=== PATIENT | female | born 1990 | race Caucasian/White ===

== ENCOUNTER 2016-11-11 16:51 | Emergency (ER) | payer MEDICAID ==
[~2016-11-11] VITALS: Ht 149.9 cm; Wt 61.2 kg
[2016-11-11 16:55] VITALS: BP 113/63; PULSE 95; RESP 18; TEMP 98.3; O2SAT 100
[2016-11-11 17:36] LABS: BILIRUBIN,URINE NEGATIVE (NEGATIVE); BLOOD, URINE 3+ (NEGATIVE); CLARITY/URINE CLOUDY (CLEAR); COLOR,URINE YELLOW (YELLOW); GLUCOSE,URINE NEGATIVE (NEGATIVE); KETONES,URINE NEGATIVE (NEGATIVE); LEUKOCYTE ESTERASE ,URINE 1+ (NEGATIVE); NITRITE, URINE NEGATIVE (NEGATIVE); PH,URINE 6.5 (5.0-8.0); PROTEIN URINE 2+ (NEGATIVE); UROBILINOGEN,URINE 0.2 (0.2-1.0)
--- NOTE | 2016-11-11 17:38 | NUR ---
Patient to ER bed 06 to gown for evaluation. Side rails up. Report given to Man
[2016-11-11] MEDS ORDERED: NACL 0.9% 1,000 ML IV ONE (17:47)
--- NOTE | 2016-11-11 17:50 | NUR ---
ER at bedside examining patient.
[2016-11-11 17:52] LABS: BACTERIA,URINE MODERATE /HPF (None Seen); MUCUS,URINE 1+ /LPF (None Seen); RBC,URINE >100 /HPF (0-3); WBC,URINE 20-50 /HPF (0-3)
[2016-11-11] MEDS ORDERED: KETOROLAC TROMETHAMINE 30 MG VIAL IVP ONE (18:00)
--- NOTE | 2016-11-11 18:00 | NUR ---
Pt presents to ED c/o lower abd radiating to back since last evening w/nausea.Pt denies vomiting or diarrhea.
--- NOTE | 2016-11-11 18:10 | NUR ---
Patient transported to radiology via gurney, accompanied by rad staff.
[2016-11-11 18:14] LABS: EOSINOPHILS # (AUTO) 0.2 K/uL (0.0-0.4)
--- NOTE | 2016-11-11 18:15 | NUR ---
PT RETURNED FROM RAD DEPT TOLERATED WELL.
[2016-11-11 18:20] LABS: CREATININE 0.75 mg/dL (0.55-1.30); POTASSIUM 4.1 mmol/L (3.5-5.1)
[2016-11-11 18:25] LABS: ALBUMIN 4.6 g/dL (3.4-4.8); TOTAL BILIRUBIN 0.2 mg/dL (0.0-1.0); TOTAL PROTEIN, SERUM 7.8 g/dL (6.4-8.3)
[2016-11-11 18:39] LABS: BASOPHILS # (AUTO) 0.2 K/uL (0.0-0.2); EOSINOPHILS % (AUTO) 1.6 % (0.0-4.0); LYMPHOCYTES # (AUTO) 1.6 K/uL (1.0-5.5); MONOCYTES # (AUTO) 0.7 K/uL (0.0-1.0)
[2016-11-11 18:42] LABS: BASOPHILS % (AUTO) 1.7 % (0.0-2.0); HEMATOCRIT 34.1 % (36-48); HEMOGLOBIN 11.1 g/dL (12.0-16.0); LYMPHOCYTES % (AUTO) 13.2 % (20.5-51.5); MEAN CORPUSCULAR HEMOGLOBIN 23 pg (27-31); MEAN CORPUSCULAR HGB CONC 33 % (32-36); MEAN CORPUSCULAR VOLUME 69 fL (79.0-98.0); MONOCYTES % (AUTO) 5.9 % (1.7-9.3); NEUTROPHILS # (AUTO) 9.3 K/uL (1.8-7.7); NEUTROPHILS % (AUTO) 77.6 % (40.0-70.0); PLATELET COUNT (AUTO) 349 K/uL (130-430); RED BLOOD CELL COUNT(AUTO) 4.92 MIL/uL (4.2-6.2); RED CELL DISTRIBUTION WIDTH 16.8 % (9.0-15.0)
--- NOTE | 2016-11-11 18:50 | NUR ---
PT REPORTS PAIN TOLERABLE 3/10.PT AMULATED TO RESTROOM W/O ASSIST STEADY GAIT.
[2016-11-11] MEDS ORDERED: cefTRIAXone 1 GM IVPB PREMIX 50 ML IV ONE (19:15)
[2016-11-11 19:53] VITALS: BP 113/63; PULSE 95; RESP 18; TEMP 98.3; O2SAT 100
--- NOTE | 2016-11-11 19:53 | NUR ---
Patient given written and verbal discharge instructions and verbalizes understanding. ER MD MOLINA discussed with patient the results and treatment provided. Patient in stable condition. ID arm band removed. IV catheter removed intact and dressing applied, no active bleeding. Rx of MACROBID AND TRAMADOL given. Patient educated on pain management and to follow up with PMD. Pain Scale 2/10. Opportunity for questions provided and answered.
--- NOTE | 2016-11-13 10:41 | NUR ---
RECEIVED FINAL URINE CULTURE, PT WAS GIVEN ABX THAT THEY WERE SENSITIVE TO. NO FURTHER ACTIONS NEEDED
== END 2016-11-11 19:53 | disposition home or self-care (01) ==
LOC: SED 18:36
DX: N12 Tubulo-interstitial nephritis, not specified as acute or chronic (principal)
CPT/HCPCS: 36415; 74176; 80053; 81000; 81025; 83690; 85025; 87086; 87186; 96361; 96365; 96375; 99285; J0696; J1885; J7030

== ENCOUNTER 2018-10-30 11:27 | Emergency (ER) | payer MEDICAID ==
[~2018-10-30] VITALS: Ht 149.9 cm; Wt 68.0 kg
[2018-10-30 11:27] VITALS: BP_SYST 139
[2018-10-30 14:10] VITALS: BP_SYST 133
== END 2018-10-30 14:10 | disposition home or self-care (01) ==
LOC: SED 11:27
DX: J20.9 Acute bronchitis, unspecified (principal); R59.0 Localized enlarged lymph nodes
CPT/HCPCS: 36415; 71046-TC; 81025; 86710; 93005; 99284

== ENCOUNTER 2019-04-06 17:21 | Emergency (ER) | payer MEDICAID ==
[~2019-04-06] VITALS: Ht 149.9 cm; Wt 68.0 kg
[2019-04-06 17:31] VITALS: BP_SYST 138
--- NOTE | 2019-04-06 17:38 | NUR ---
Patient to ER bed 6 to gown for evaluation. Side rails up. Report given to Samson ORTA.
--- NOTE | 2019-04-06 17:40 | NUR ---
Patient is awake, alert, and oriented x4. is at bedside. Patient reports back pain this morning that moved to her upper abdomen at 1400 today. Patient presents with pressure pain to upper abdomen 9/10; she denies nausea, vomiting, and diarrhea.
--- NOTE | 2019-04-06 17:43 | NUR ---
ER Dr. Samuel at bedside examining patient.
[2019-04-06] MEDS ORDERED: KETOROLAC TROMETHAMINE 60 MG/2 ML VIAL IM ONE (17:45)
[2019-04-06 18:29] LABS: HEMOGLOBIN 11.3 g/dL (12.0-16.0); MEAN CORPUSCULAR HEMOGLOBIN 25 pg (27-31); MEAN CORPUSCULAR HGB CONC 32 % (32-36); MEAN CORPUSCULAR VOLUME 76 fL (79.0-98.0); RED BLOOD CELL COUNT(AUTO) 4.61 MIL/uL (4.2-6.2); RED CELL DISTRIBUTION WIDTH 15.8 % (9.0-15.0); WHITE BLOOD COUNT (AUTO) 13.9 K/uL (4.8-10.8)
[2019-04-06 18:30] LABS: BASOPHILS # (AUTO) 0.1 K/uL (0.0-0.2); BASOPHILS % (AUTO) 0.5 % (0.0-2.0); EOSINOPHILS # (AUTO) 0.1 K/uL (0.0-0.4); EOSINOPHILS % (AUTO) 0.5 % (0.0-4.0); LYMPHOCYTES # (AUTO) 1.4 K/uL (1.0-5.5); LYMPHOCYTES % (AUTO) 9.9 % (20.5-51.5); MONOCYTES # (AUTO) 0.8 K/uL (0.0-1.0); NEUTROPHILS # (AUTO) 11.5 K/uL (1.8-7.7); NEUTROPHILS % (AUTO) 83.1 % (40.0-70.0); PLATELET COUNT (AUTO) 343 K/uL (130-430)
[2019-04-06 18:32] LABS: POTASSIUM 3.9 mmol/L (3.5-5.1)
[2019-04-06 18:33] LABS: CREATININE 0.58 mg/dL (0.55-1.30)
[2019-04-06 18:40] LABS: TOTAL BILIRUBIN 0.4 mg/dL (0.0-1.0)
[2019-04-06] MEDS ORDERED: fentaNYL CITRATE/PF 100 MCG/2 ML AMP IM ONE (19:00)
--- NOTE | 2019-04-06 19:04 | NUR ---
Report given to YOU Perez for continuation of care.
[2019-04-06 19:40] VITALS: BP_SYST 138
--- NOTE | 2019-04-06 19:40 | NUR ---
Patient given written and verbal discharge instructions and verbalizes understanding. ER MD discussed with patient the results and treatment provided. Patient in stable condition. ID arm band removed. Rx of [place] given. Patient educated on pain management and to follow up with PMD. Pain Scale 0/10 Opportunity for questions provided and answered. Medication side effect fact sheet provided.
== END 2019-04-06 19:40 | disposition home or self-care (01) ==
LOC: SED 17:21
DX: K80.20 Calculus of gallbladder without cholecystitis without obstruction (principal)
CPT/HCPCS: 36415; 76700; 80053; 81025; 83690; 85025; 96372; 99284; J1885; J3010

== ENCOUNTER 2021-12-06 20:20 | Emergency (ER) | payer MEDICAID ==
[~2021-12-06] VITALS: Ht 149.9 cm; Wt 68.0 kg
[2021-12-06 20:30] VITALS: BP_SYST 125
--- NOTE | 2021-12-06 20:34 | NUR ---
PER PATIENT, PATIENT HAD IUD TAKEN OUT ON 11/29 AND STATED SHE STARTED HER PERIOD TWO DAYS LATER ON 12/01. INCREASE IN PELVIC PAIN AND BLEEDING WITH CLOTS SINCE THEN, WITH NO RELIEF.
--- NOTE | 2021-12-06 20:39 | NUR ---
31 YR OLD AOX4, FEMALE AMBULAORY WITH COMPLAINT OF ABDOMINAL PAIN AFTER IUD REMOVAL ONE WEEK AGO. PT STATES SHE HAS BEEN BLEEDING ALOT AND HAS CONCERNS ABOUT ABDOMINAL CRAMPING. MD AT THE BEDSIDE. WILL MONITOR NEEDED
[2021-12-06] MEDS ORDERED: PHENAZOPYRIDINE HCL 100 MG TABLET PO ONE (21:15)
[2021-12-06] MEDS ORDERED: KETOROLAC TROMETHAMINE 60 MG/2 ML VIAL IM ONE (21:15)
[2021-12-06] MEDS ORDERED: cefTRIAXone 1 GM in LIDOCAINE 1%, 20 ML MDV 2.1 ML IM ONE (21:15)
[2021-12-06] MEDS ORDERED: NITR-85 PO (21:24)
[2021-12-06] MEDS ORDERED: PHEN-726 PO (21:24)
[2021-12-06 21:26] LABS: BILIRUBIN,URINE NEGATIVE (NEGATIVE); BLOOD, URINE 3+ (NEGATIVE); CLARITY/URINE TURBID (CLEAR); COLOR,URINE ORANGE (YELLOW); GLUCOSE,URINE NEGATIVE (NEGATIVE); KETONES,URINE TRACE (NEGATIVE); LEUKOCYTE ESTERASE ,URINE 1+ (NEGATIVE); NITRITE, URINE NEGATIVE (NEGATIVE); PH,URINE 6.5 (5.0-8.0); PROTEIN URINE 2+ (NEGATIVE); UROBILINOGEN,URINE 0.2 (0.2-1.0)
[2021-12-06 21:45] LABS: BACTERIA,URINE FEW /HPF (None Seen); RBC,URINE >100 /HPF (0-3); WBC,URINE 20-50 /HPF (0-3)
--- NOTE | 2021-12-06 21:55 | NUR ---
Patient given written and verbal discharge instructions and verbalizes understanding. ER MD Lucas discussed with patient the results and treatment provided. Patient in stable condition. ID arm band removed. Patient educated on pain management by MD Lucas and to follow up with PMD. Opportunity for questions provided and answered. Pt discharged ambulatory with steadt gait with all belongings.
== END 2021-12-06 21:55 | disposition home or self-care (01) ==
LOC: SED 20:20
DX: N39.0 Urinary tract infection, site not specified (principal); R10.30 Lower abdominal pain, unspecified
CPT/HCPCS: 81000; 87086; 96372; 99284; J0696; J1885; J2001

== ENCOUNTER 2022-01-03 14:55 | Emergency (ER) | payer MEDICAID ==
[~2022-01-03] VITALS: Ht 149.9 cm; Wt 68.0 kg
[~2022-01-03 14:55] MED LIST: NITR-85 PO; PHEN-726 PO
--- NOTE | 2022-01-03 15:45 | NUR ---
ER at bedside examining patient.
[2022-01-03 15:49] VITALS: BP_SYST 121
--- NOTE | 2022-01-03 15:50 | NUR ---
Patient to ER tent for evaluation. report given to OLNNY Mitchell
--- NOTE | 2022-01-03 15:51 | NUR ---
patient brought in by self ambulatory complaining of cough, body aches and back pain. patient tested positive for covid on 12/23/21 and negative 12/31/21. pain 07/02
[2022-01-03] MEDS ORDERED: PRED20TA PO (16:27)
[2022-01-03] MEDS ORDERED: ZIT250 PO (16:27)
--- NOTE | 2022-01-03 16:53 | NUR ---
Patient given written and verbal discharge instructions and verbalizes understanding. ER MD discussed with patient the results and treatment provided. Patient in stable condition. ID arm band removed. IV catheter removed intact and dressing applied, no active bleeding. Rx of [place] given. Patient educated on pain management and to follow up with PMD. Opportunity for questions provided and answered. Medication side effect fact sheet provided.
[2022-01-03 16:58] VITALS: BP_SYST 121
== END 2022-01-03 16:53 | disposition home or self-care (01) ==
LOC: SED 14:55
DX: J04.0 Acute laryngitis (principal); Z79.899 Other long term (current) drug therapy
CPT/HCPCS: 71045; 99283